=== PATIENT | female | born 1975 | race Caucasian/White ===

== ENCOUNTER 2018-02-24 21:42 | Emergency (ER) | payer BC, OTHER ==
[~2018-02-24] VITALS: Ht 160 cm; Wt 92.6 kg
[2018-02-24] MEDS ORDERED: TETANUS,DIPTH,PERTUSS P/F (BOOSTRIX) 0.5 ML VIAL IM ONE (22:00)
[2018-02-24] MEDS ORDERED: LIDOCAINE 1% INJ 20 ML 20 ML VIAL INJ ONE (22:00)
--- NOTE | 2018-02-24 22:48 | ED Integumentary General ---
General Stated Complaint: TOP OF HEAD LAC Source: patient Exam Limitations: no limitations History of Present Illness Date Seen by Provider: Feb 24, 2018 Time Seen by Provider: 22:00 Initial Comments The patient is a 42 year old female who presents to the emergency room with complains of a laceration to her scalp. Her and her are currently staying in a camper and she was out walking the dog when she walked under the camper's 5th wheel hitch hitting her head. She has a 2.5cm semicircular shaped laceration to her the top of her scalp. Bleeding is controlled. She denies LOC, neck pain, nausea, or dizziness. Timing/Duration: just prior to arrival Location: scalp Possible Cause: no cause identified Associated Symptoms: denies symptoms Allergies and Home Medications Allergies Coded Allergies: No Known Drug Allergies (Unverified , 02/24/18) Patient Home Medication List Home Medication List Reviewed: Yes Review of Systems Review of Systems Constitutional: no symptoms reported, see HPI Skin: see HPI, other (laceration to scalp) All Other Systems Reviewed Negative Unless Noted: Yes Past Xtomhsa-Qebmru-Ngmjnf Hx Past Med/Social Hx: Reviewed Nursing Past Med/Soc Hx Patient Social History Recent Foreign Travel: No Contact w/Someone Who Travel: No Family Medical History Reviewed Nursing Family Hx Physical Exam Vital Signs Vital Signs - First Documented 02/24/18 21:51 Temp 98.4 Pulse 89 Resp 16 B/P (MAP) 155/97 (116) Pulse Ox 96 Capillary Refill : General Appearance: WD/WN, no apparent distress Cardiovascular: normal peripheral pulses, regular rate, rhythm, no edema, no gallop, no JVD, no murmur Respiratory: chest non-tender, lungs clear, normal breath sounds, no respiratory distress, no accessory muscle use Neurologic/Psychiatric: alert, normal mood/affect, oriented x 3 Skin: normal color, warm/dry Skin Problem Location: scalp Skin Problem Character: other (2.5cm U shaped laceration to scalp see imaged.) Procedures/Interventions Wound Location: Scalp Wound Length (cm): 2.5 Wound's Depth, Shape: superficial (semi cirrcular ) Wound Explored: clean Irrigated w/ Saline (ccs): 100 Anesthesia: 1% Lidocaine Volume Anesthetic (ccs): 2 Staple Repair: Stapler 35W Progress The wound was cleaned and irrigated with normal saline. The wound was then anesthetized with 1% lidocaine with out epi. The wound was then closed with 3 mil. Patient tolerated procedure well. Bleeding was minimal. Progress/Results/Core Measures Results/Orders My Orders Orders - TIMBO WILLIS DiphtAnia(Acell),Tet Adult (Boostrix (02/24/18 22:00) Lidocaine 1% Inj 20 Ml (Xylocaine 1% Inj (02/24/18 22:00) Vital Signs/I&O 02/24/18 02/24/18 21:51 23:09 Temp 98.4 98.5 Pulse 89 86 Resp 16 18 B/P (MAP) 155/97 (116) 128/86 (100) Pulse Ox 96 98 Departure Impression Primary Impression: Laceration Disposition: 01 HOME, SELF-CARE Condition: Stable/Unchanged Departure-Patient Inst. Decision time for Depature: 22:47 Referrals: NO,LOCAL PHYSICIAN (PCP) Primary Care Physician Patient Instructions: Laceration Repair With [place] (DC) Add. Discharge Instructions: Watch for signs of infection such as increased redness, swelling, drainage. Follow-up with your primary care provider within 1 week for recheck. Return back to the emergency room for staple removal in 7 days. Return back to the emergency room should she develop any neurological symptoms such as dizziness, loss of consciousness, lightheadedness. Images Head/Face 1 - Laceration TIMBO WILLIS Feb 24, 2018 22:48
[2018-02-24 23:09] VITALS: BP 128/86
== END 2018-02-24 23:09 | disposition home or self-care (01) ==
LOC: ER 21:43
DX: S01.01XA Laceration without foreign body of scalp, initial encounter (principal); Z23 Encounter for immunization; W22.09XA Striking against other stationary object, initial encounter
CPT/HCPCS: 12013; 90471; 90715